=== PATIENT | female | born 1995 | race Caucasian/White ===

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

== ENCOUNTER 2017-05-24 17:48 | Emergency (ER) | payer OTHER ==
[2017-05-24 18:01] VITALS: BP 111/78
[2017-05-24] MEDS ORDERED: Lidocaine 2% VISCOUS* 15 ML UDC PO ONE (18:44)
[2017-05-24] MEDS ORDERED: Dexamethasone IV* 8 MG in NS 0.9% 50 ML* 50 ML IVPB ONE (18:46)
[2017-05-24] MEDS ORDERED: Dexamethasone IV* 4 MG/ML 1 ML (4 MG) IM ONE (18:47)
[2017-05-24] MEDS ORDERED: Benzonatate CAP* 100 MG PO ONE (18:48)
--- NOTE | 2017-05-24 19:37 | UC ---
Throat Pain/Nasal Alexei HPI - HPI Summary HPI Summary: 22 year old female with history of developmental delay here with sore throat, cough and fever. As per mother, patient was treated for strep about 3 weeks ago with abx. As per mother, patient went back to her normal self but in the past 4 days she developed severe throat pain along with cough and fever. No n/v/d or any other complaints. - History of Current Complaint Chief Complaint: UCRespiratory Stated Complaint: SORE THROAT Time Seen by Provider: 05/24/17 18:17 Hx Obtained From: Patient Hx Last Menstrual Period: mirena Onset/Duration: Lasting Days Severity: Mild Associated Signs & Symptoms: Positive: Fever. Negative: Dysphagia, FB Sensation , Sinus Discomfort, Nasal Discharge - Allergies/Home Medications Allergies/Adverse Reactions: Allergies Allergy/AdvReac Type Severity Reaction Status Date / Time No Known Allergies Allergy Verified 04/22/17 18:21 PMH/Surg Hx/FS Hx/Imm Hx - Surgical History Surgical History: None - Family History Known Family History: Positive: Hypertension Negative: Renal Disease - Social History Alcohol Use: Rare Substance Use Type: None Smoking Status (MU): Never Smoked Tobacco Household Exposure Type: Cigarettes - Immunization History Most Recent Influenza Vaccination: none Vaccination Up to Date: Yes Review of Systems Constitutional: Fever, Chills Skin: Negative Eyes: Negative ENT: Negative, Sore Throat Respiratory: Cough Cardiovascular: Negative Gastrointestinal: Negative Genitourinary: Negative Motor: Negative Neurovascular: Negative Musculoskeletal: Negative Neurological: Negative Psychological: Negative All Other Systems Reviewed And Are Negative: Yes Physical Exam Triage Information Reviewed: Yes Appearance: Well-Appearing, No Pain Distress Vital Signs: Initial Vital Signs Temp 36.4 C 05/24/17 17:57 Pulse 110 05/24/17 17:57 Resp 20 05/24/17 17:57 BP 111/78 05/24/17 17:57 Pulse Ox 98 05/24/17 17:57 ENT: Positive: Pharyngeal erythema, Tonsillar swelling, Sinus tenderness, Uvula midline. Negative: Nasal congestion, Nasal drainage, Tonsillar exudate Respiratory: Positive: Chest non-tender, Lungs clear, Normal breath sounds, No respiratory distress Cardiovascular: Positive: RRR, No Murmur Abdomen Description: Positive: Nontender, No Organomegaly Skin Exam: Normal Throat Pain/Nasal Course/Dx - Course Course Of Treatment: Patient was refusing to be swapped. So we gave her viscous lido and we did strep and throat cx. Treated with tessalon pearles and decadron. - Differential Dx/Diagnosis Differential Diagnosis/HQI/PQRI: Laryngitis, Pharyngitis, Sinusitis, URI Provider Diagnoses: pharyngitis Discharge - Discharge Plan Condition: Good Disposition: HOME Prescriptions: Benzonatate CAP* [Tessalon 100 MG CAP*] 100 mg PO TID PRN #15 cap PRN Reason: Cough Patient Education Materials: Pharyngitis (ED) Referrals: Beatriz Herron NP [Primary Care Provider] -
--- NOTE | 2017-05-26 17:42 | UC ---
Progress - Progress Note Progress Note: notify pt of culture results AMox eRxed
== END 2017-05-24 20:08 | disposition home or self-care (01) ==
LOC: UCEAST 17:48
DX: J02.9 Acute pharyngitis, unspecified (principal); R05 Cough; R50.9 Fever, unspecified; Z77.22 Contact with and (suspected) exposure to environmental tobacco smoke (acute) (chronic)
CPT/HCPCS: 87070; 87651; 99212; A9270-GY; G0463; J1100

== ENCOUNTER 2023-08-17 17:07 | Inpatient (IN) ==
[2023-08-17] MEDS ORDERED: Prochlorperazine 5 mg/ml 2 ml VIAL (10 mg) IV PRN (18:18)
[2023-08-17] MEDS ORDERED: Lidocaine 1% VIAL 10 MG/ML 30 ML VIAL INJ PRN (18:18)
[2023-08-17] MEDS ORDERED: Calcium Carb (TUMS) 500 mg CHEW TAB PO PRN (18:25)
[2023-08-17] MEDS ORDERED: Ondansetron 4 mg VIAL 2 MG/ML 2 ml VIAL IV PRN (18:25)
[2023-08-17 19:21] LABS: Urine Benzodiazepine Screen None Detected (None Detect); Urine Cannabinoids Screen None Detected (None Detect); Urine Opiates Screen None Detected (None Detect)
[2023-08-17] MEDS: Dinoprostone 10 MG VAG.SUPP VAGINAL ONE (19:45)
[2023-08-18] MEDS: miSOPROStol 100 mcg TAB PO ONE ×2 (15:10→19:35)
[2023-08-18] MEDS: Buffered Lidocaine 1% SYRIN 1 ml INTRADERM ONE (16:20)
[2023-08-18] MEDS: Lactated Ringers 1000 ml BAG 1,000 ML IV ONE (16:40)
[2023-08-18 16:58] LABS: ABS Eosinophils 0.2 10^3/uL (0.0-0.5); ABS Lymphocytes 1.6 10^3/uL (1.0-4.8); ABS Monocytes 0.7 10^3/uL (0.0-0.9); ABS Neutrophils 4.4 10^3/uL (1.5-7.6); ABS Nucleated RBC 0.01 10^3/ul; Eosinophil % 2.5 %; Hematocrit 30.3 % (35-45); Hemoglobin 9.9 g/dL (11.5-14.3); Lymphocyte % 22.7 %; Mean Corpuscular Hemoglobin 25.8 pg (27-33); Mean Corpuscular Hgb Conc 32.8 g/dL (31-36); Mean Corpuscular Volume 78.7 fL (80-97); Mean Platelet Volume 9.8 fL (7.5-11.2); Nucleated Red Blood Cells % 0.1 %/100WBC (0.0-0.8); Platelet Count 219 10^3/uL (150-450); Red Blood Count 3.85 10^6/uL (3.63-4.92); Red Cell Distribution Width 16.6 % (12-17); White Blood Count 6.9 10^3/uL (3.8-11.8)
[2023-08-18 17:37] LABS: Albumin 3.3 g/dL (3.2-5.2); Albumin/Globulin Ratio 1.1 (1-3); Calcium 8.8 mg/dL (8.6-10.3); Creatinine, Serum 0.65 mg/dL (0.51-0.95); Globulin 2.9 g/dL (2-4); Potassium 4.4 mmol/L (3.5-5.0); Total Bilirubin 0.3 mg/dL (0.2-1.0); Total Protein 6.2 g/dL (6.4-8.9); eGFR CKD-EPI 124.5 (>60)
[2023-08-18] MEDS ORDERED: miSOPROStol 100 mcg TAB PO ONE (22:48)
[2023-08-19] MEDS: Lactated Ringers 1000 ml BAG 1,000 ML IV SCH (03:56)
[2023-08-19] MEDS ORDERED: Buffered Lidocaine 1% SYRIN 1 ml ONE (09:13)
[2023-08-19] MEDS: Buffered Lidocaine 1% SYRIN 1 ml ONE (09:20)
[2023-08-19] MEDS: OBEPIDURAL (200 ML) 200 ML EPIDURAL ONE (16:54)
[2023-08-19] MEDS: Lidocaine 1.5% EPI 1:200,000 30 ML SDV ONE (16:56)
[2023-08-19] MEDS ORDERED: Lactated Ringers 1000 ml BAG 1,000 ML IV ONE (17:00)
[2023-08-19] MEDS ORDERED: Lactated Ringers 1000 ml BAG 1,000 ML IV SCH (17:00)
[2023-08-19] MEDS ORDERED: OBEPIDURAL (200 ML) 200 ML EPIDURAL SCH (17:00)
[2023-08-19] MEDS ORDERED: Phenylephrine 40 mcg/mL 10mL (400mcg) SYRINGE IV PUSH PRN ×2 (17:00)
[2023-08-19 17:28] LABS: Urine Appearance Clear; Urine Bilirubin Negative (Negative); Urine Blood Negative (Negative); Urine Color Colorless; Urine Glucose Negative (Negative); Urine Ketones Negative (Negative); Urine Nitrite Negative (Negative); Urine Protein Trace (Negative); Urine Specific Gravity 1.009 (1.002-1.030); Urine Urobilinogen Negative (Negative)
[2023-08-19] MEDS: Oxytocin in LR 20,000 MILLI.UNIT/1,000 ML BAG IV SCH (17:43)
[2023-08-19] MEDS: Acetaminophen IV 1 GM/100ML 1,000 MG/100 ML BAG IV ONE (19:59)
[2023-08-20] MEDS ORDERED: ROPIVACAINE 5 MG/ML 30 ML BTL (0.5%) ONE (04:30)
[2023-08-20] MEDS ORDERED: Metoclopramide 5 MG/ML VIAL (10 mg) ONE (04:42)
[2023-08-20] MEDS: ceFOXitin 2 GM IVPREMIX 2 GM/50 ML BAG IVPB ONE (04:44)
[2023-08-20] MEDS ORDERED: Oxytocin 10 UNITS/ML 1 ML VIAL ONE ×5 (05:03→05:31)
[2023-08-20] MEDS ORDERED: HYDROmorphone 1 MG/1 ML SYRINGE ONE (05:05)
[2023-08-20] MEDS ORDERED: Ondansetron 4 mg VIAL 2 MG/ML 2 ml VIAL ONE (05:08)
[2023-08-20] MEDS ORDERED: Phenylephrine 40 mcg/mL 10mL (400mcg) SYRINGE ONE (05:09)
[2023-08-20] MEDS ORDERED: Dexamethasone IV 4 MG/ML VIAL 1 ml VIAL ONE (05:25)
[2023-08-20] MEDS ORDERED: Dibucaine 1% OINT 28.35 GM TUBE PR PRN (05:45)
[2023-08-20] MEDS ORDERED: Glycerin ADULT 2.4 gm SUPP PR PRN (05:45)
[2023-08-20] MEDS ORDERED: Witch Hazel PAD JAR TOPICAL PRN (05:45)
[2023-08-20] MEDS ORDERED: Lactated Ringers 1000 ml BAG 1,000 ML IV SCH (06:00)
[2023-08-20] MEDS: Oxytocin in LR 20,000 MILLI.UNIT/1,000 ML BAG IV SCH (06:43)
[2023-08-20] MEDS ORDERED: Naloxone 0.4 mg VIAL 0.4 mg/ml 1 ml VIAL IV PUSH PRN (09:39)
[2023-08-20] MEDS ORDERED: Acetaminophen IV 1 GM/100ML 1,000 MG/100 ML BAG IV PRN (09:39)
[2023-08-20] MEDS ORDERED: Metoclopramide 5 MG/ML VIAL (10 mg) IV PRN (09:39)
[2023-08-20] MEDS ORDERED: Ondansetron 4 mg VIAL 2 MG/ML 2 ml VIAL IV PRN (09:39)
[2023-08-21 07:49] LABS: ABS Eosinophils 0.4 10^3/uL (0.0-0.5); ABS Lymphocytes 1.8 10^3/uL (1.0-4.8); ABS Monocytes 0.9 10^3/uL (0.0-0.9); ABS Neutrophils 7.3 10^3/uL (1.5-7.6); ABS Nucleated RBC 0.01 10^3/ul; Eosinophil % 3.5 %; Hematocrit 23.9 % (35-45); Hemoglobin 7.7 g/dL (11.5-14.3); Lymphocyte % 17.6 %; Mean Corpuscular Hemoglobin 25.7 pg (27-33); Mean Corpuscular Hgb Conc 32.3 g/dL (31-36); Mean Corpuscular Volume 79.5 fL (80-97); Mean Platelet Volume 9.1 fL (7.5-11.2); Platelet Count 175 10^3/uL (150-450); Red Cell Distribution Width 16.6 % (12-17); White Blood Count 10.4 10^3/uL (3.8-11.8)
[2023-08-23 09:10] VITALS: BP 121/73
[2023-08-23] MEDS: Varicella Virus Vaccine Live 0.5 ML VIAL SUBCUT ONE (12:32)
== END 2023-08-23 12:52 | disposition home or self-care (01) | DRG 540 ==
LOC: MCHOBOUT 17:07 → MCHOB 18:13
PROVIDERS: ADMIT Advanced Practice Midwife; ATTEND Obstetrics & Gynecology